=== PATIENT | female | born 1950 | race Two or more races ===

== ENCOUNTER → 2024-10-21 | Emergency (ER) | payer OTHER ==
[~2024-10-21] VITALS: Ht 162.6 cm; Wt 62.6 kg
[~2024-10-21] MED LIST: CADUET 10 MG-21 EACH PO; CHILDREN'S ASPI81 MG PO; LEVOTHYROXINE25 MCG PO; LOTENSIN40 MG PO; NEURONTIN800 MG PO; TRADJENTA5 MG PO
[2024-10-21 21:03] VITALS: BP 154/72; O2SAT 96
== END | disposition home or self-care (01) ==
LOC: ER 20:28
DX: S09.8XXA Other specified injuries of head, initial encounter (principal); W19.XXXA Unspecified fall, initial encounter; Y93.89 Activity, other specified; Y92.89 Other specified places as the place of occurrence of the external cause; Y99.8 Other external cause status; Z88.0 Allergy status to penicillin